=== PATIENT | female | born 1985 | race Caucasian/White ===

== ENCOUNTER → 2021-12-19 15:02 | Outpatient (CLI) | payer OTHER, SELFPAY ==
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
== END ==
LOC: LBN 15:06 → DI 15:07
PROVIDERS: Visit Provider Physician Assistant Medical
DX: S92.335A Nondisplaced fracture of third metatarsal bone, left foot, initial encounter for closed fracture (principal); V19.9XXA Pedal cyclist (driver) (passenger) injured in unspecified traffic accident, initial encounter
CPT/HCPCS: 73630